=== PATIENT | male | born 1950 | race Caucasian/White ===

== ENCOUNTER 2023-11-08 12:08 | Outpatient (CLI) | payer MEDICARE ==
[~2023-11-08 12:08] MED LIST: Magnevist 469MG/ML 20 ML VIAL ONE
== END 2023-11-08 12:09 | disposition home or self-care (01) ==
LOC: CSHMRI 12:08
PROVIDERS: ATTEND Urology
DX: C61 Malignant neoplasm of prostate (principal); S76.312A Strain of muscle, fascia and tendon of the posterior muscle group at thigh level, left thigh, initial encounter; M77.8 Other enthesopathies, not elsewhere classified
CPT/HCPCS: 72197; 82565